=== PATIENT | male | born 1960 ===

== ENCOUNTER 2017-08-07 16:09 | Emergency (ER) | payer OTHER ==
[~2017-08-07] VITALS: Ht 180.3 cm; Wt 104.3 kg
[~2017-08-07 16:09] MED LIST: CYCL10 PO; HYDACE5 PO; HYDCHL25 PO; NAPR500 PO; OXYACE5T PO; RXCYCL10 PO; RXOXYACE PO
[2017-08-07 17:18] LABS: BASOPHILS ABSOLUTE AUTO 0.04 K/mm3 (0.00-0.23); BASOPHILS PERCENT AUTO 1 % (0-2); EOSINOPHILS ABSOLUTE AUTO 0.12 K/mm3 (0.00-0.68); EOSINOPHILS PERCENT AUTO 2 % (0-6); Hematocrit 33.6 % (37.0-53.0); Hemoglobin 10.9 g/dL (13.5-17.5); IMMATURE GRAN ABSOLUTE AUTO 0.02 K/mm3 (0.00-0.10); IMMATURE GRAN PERCENT AUTO 0 % (0-1); LYMPHOCYTES PERCENT AUTO 15 % (21-46); MONOCYTES ABSOLUTE AUTO 0.77 K/mm3 (0.16-1.47); MONOCYTES PERCENT AUTO 10 % (4-13); Mean Corpuscular HGB 28.8 pg (26.0-34.0); Mean Corpuscular HGB Conc 32.4 g/dL (31.5-36.5); Mean Corpuscular Volume 89 fL (80-100); Mean Platelet Volume 9.9 fL (9.1-12.4); NEUTROPHILS ABSOLUTE AUTO 5.32 K/mm3 (1.96-9.15); NEUTROPHILS PERCENT AUTO 72 % (41-73); Platelet Count 462 K/mm3 (150-400); RDW Coefficient Variation 12.5 % (11.7-14.2); RDW Standard Deviation 40.7 fL (35.1-46.3); Red Blood Cell Count 3.78 M/mm3 (4.30-5.90); White Blood Cell Count 7.37 K/mm3 (4.00-11.30)
[2017-08-07 17:45] LABS: Alanine Aminotransfer (ALT/SGP 52 U/L (12-78); Albumin, Blood 3.5 g/dL (3.4-5.0); Albumin/Globulin Ratio 0.8 (0.8-1.8); Alk Phos 161 U/L (50-136); Anion Gap 8 mmol/L (6-16); Aspartate Aminotrans (AST/SGOT 41 U/L (12-37); Bilirubin, Total 0.4 mg/dL (0.1-1.0); Blood Urea Nitrogen 15 mg/dL (8-24); Bun/Creatinine Ratio 13.6 (12.0-20.0); CO2, Blood 27 mmol/L (21-32); Calcium, Blood 8.9 mg/dL (8.5-10.1); Chloride, Blood 96 mmol/L (98-108); Globulin, Blood 4.5 g/dL (2.2-4.0); Glomerular Filtration Rate >60 (60-); Glucose, Blood 102 mg/dL (70-99); Potassium, Blood 4.8 mmol/L (3.5-5.5); Sodium, Blood 131 mmol/L (136-145); Troponin I <0.015 ng/mL (0.000-0.040)
[2017-08-07 19:27] LABS: Uric Acid, Blood 4.5 mg/dL (3.5-7.2)
[2017-08-07] MEDS ORDERED: CEPH500 PO (20:50)
[2017-08-07] MEDS ORDERED: LISI20 PO (21:32)
[2017-08-07] MEDS ORDERED: Hydrocodone-Ap1 EA20 (21:32)
[2017-08-07] MEDS ORDERED: TEMA7.5 PO (21:32)
[2017-08-07] MEDS ORDERED: OXYC10TA19 (21:32)
[2017-08-07] MEDS ORDERED: METCAR500 PO (21:32)
[2017-08-07] MEDS ORDERED: ELIQUIS5 MG PO (21:32)
== END 2017-08-07 22:04 | disposition home or self-care (01) ==
LOC: ER 16:09
PROVIDERS: Emergency Medicine
DX: L03.116 Cellulitis of left lower limb (principal); Z79.899 Other long term (current) drug therapy; Z79.891 Long term (current) use of opiate analgesic
CPT/HCPCS: 36415; 71046; 80053; 83880; 84484; 84550; 85025; 93005; 93010; 93971; 99284